=== PATIENT | female | born 1965 | race Caucasian/White ===

== ENCOUNTER → 2018-09-08 14:58 | Outpatient (CLI) | payer OTHER, SELFPAY ==
[2018-09-13 10:54] LABS: HPV Reflexed? NOT INDICATED
== END ==
PROVIDERS: Visit Provider Obstetrics & Gynecology
DX: Z12.4 Encounter for screening for malignant neoplasm of cervix (principal)
CPT/HCPCS: 88175; G0145

== ENCOUNTER → 2021-07-31 14:26 | Outpatient (CLI) | payer OTHER, SELFPAY ==
[2021-08-05 10:32] LABS: HPV Reflexed? NOT INDICATED
== END ==
PROVIDERS: Visit Provider Obstetrics & Gynecology
DX: Z12.4 Encounter for screening for malignant neoplasm of cervix (principal)
CPT/HCPCS: 88175; G0145

== ENCOUNTER → 2021-10-15 10:10 | Outpatient (CLI) | payer OTHER, SELFPAY ==
--- NOTE | 2021-10-15 10:05 | EMB_PTH ---
PATIENT: BAUDILIO JUSTIN LOC: [facility] U#:[id number] AGE/SX: 60/F ROOM: RE10/15/[address]: Dr. Keegan Fuchs MD : 1965 BED: DIS: SPEC #: [id number] RECD: 10/15/21 10:18 STATUS: CHARANJIT JOSHUA #: [id number] RAND: 10/15/21 10:[address]: Keegan Fuchs DEPT: SURGICAL PATHOLOGY RECD BY: Leora Moore Tissues: Endometrium, NOS Procedures: Surgery Specimen Level IV HEADER OPERATION: EMBX PRE-OP DIAGNOSIS: N95.0 TISSUE SUBMITTED: EMBX MICROSCOPIC DIAGNOSIS Endometrial biopsy: Proliferative endometrium. SJ 10/17/21 MICROSCOPIC DESCRIPTION Slides are reviewed. GROSS DESCRIPTION Received is one container labeled with the patient name and designated EMBX. The specimen consists of multiple irregular fragments of light palma soft tissue that in aggregate measure 2.0 x 1.5 x 0.2 cm. The specimen is totally submitted in one cassette. / CRYS:bri 10/15/21 TC: 4 CPT:05513
== END ==
PROVIDERS: Visit Provider Obstetrics & Gynecology
DX: N95.0 Postmenopausal bleeding (principal)
CPT/HCPCS: 88305

== ENCOUNTER 2021-12-08 05:27 | Day surgery (SDC) | payer OTHER, SELFPAY ==
--- NOTE | 2021-12-03 09:22 | EKG12_ITS ---
Test Reason : PRE OP Blood Pressure : / mmHG Vent. Rate : 053 BPM Atrial Rate : 053 BPM P-R Int : 226 ms QRS Dur : 080 ms QT Int : 412 ms P-R-T Axes : 077 063 062 degrees QTc Int : 386 ms Sinus bradycardia with 1st degree A-V block Otherwise normal ECG Confirmed by MONALISA BARRIOS, TED ([id number]), editor department YUMIKO PORTER ([id number]) on 12/04/2021 7:51:26 AM Referred By: Keegan Fuchs Confirmed By:TED SHELDON MD
[2021-12-03 10:58] LABS: Hematocrit 40.2 % (37-47); Hemoglobin 13.5 g/dL (12.0-15.0); Mean Corp Hgb Conc 33.6 g/dL (32-36); Mean Corpuscular Hgb 30.7 pg (27.0-32.0); Mean Corpuscular Volume 91.4 fL (81-99); Mean Platelet Vol. 9.4 fl (6.2-12.0); Platelet Count 273 K/mm3 (150-450); RBC Distribution Width CV 12.1 % (11.6-14.6); RBC Distribution Width SD 40.5 fl (35.1-43.9); White Blood Count 5.4 K/mm3 (4.4-11.0)
[2021-12-03 11:23] LABS: Creatinine, Serum 0.65 mg/dL (0.55-1.02); EST Glomerular Filtration Rate 101 mL/min (>60); Est Glom Filt Rate - Afr Amer 122 mL/min (>60); Magnesium 2.1 mg/dL (1.6-2.6)
[2021-12-03 11:27] LABS: Prothrombin Time (Protime)PT. 12.6 SECONDS (11.7-14.9)
[2021-12-03 11:28] LABS: Partial Thromboplast Time 26.8 Seconds (24.1-36.2)
--- NOTE | 2021-12-05 | HYST_PTH ---
PATIENT: BAUDILIO JUSTIN [place] [facility] [place][id number] AGE/SX: 56/F ROOM: RE12/08/[address]: Dr. Keegan Fuchs MD : 1965 BED: DIS: 12/08/2021 SPEC #: [id number] RECD: 12/08/21 11:55 STATUS: CHARANJIT LEWIS #: [id number] RAND: 12/05/21 00:[address]: Keegan Fuchs DEPT: SURGICAL PATHOLOGY RECD BY: Onel Watts Tissues: Uterus, NOS Procedures: Surgery Specimen Level V HEADER OPERATION: ERAS, lap robotic hysterectomy, BSO PRE-OP DIAGNOSIS: Postmenopausal bleeding TISSUE SUBMITTED: Uterus and bilateral fallopian tubes and ovaries MICROSCOPIC DIAGNOSIS Uterus, bilateral fallopian tubes and ovaries, hysterectomy and bilateral salpingo-oophorectomy: Cervix ? mild chronic cystic cervicitis. Endometrium ? atrophic endometrium. Myometrium ? an intramural leiomyoma (0.3 cm in diameter). - Adenomyosis. Bilateral fallopian tubes - no pathologic diagnosis. Right ovary - no pathologic diagnosis. 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 Right paratubal cysts. SJ:rg 12/09/2021 COMMENT Nodule adjacent to the left fallopian tube is consistent with fibroma/thecoma. Case has been reviewed in consultation with Dr. Osuna who concurs with the above diagnosis. IDC:AM MICROSCOPIC DESCRIPTION Slides are reviewed. GROSS DESCRIPTION Received in fixative is one container labeled with the patient's name and designated uterus, bilateral fallopian tubes and ovaries. The specimen consists of a hysterectomy specimen consisting of uterus with cervix and attached bilateral fallopian tubes and ovaries. The uterus with cervix weighs 52 gm and measures 7.5 x 5 x 3.5 cm. The external os is oval in contour. The ectocervical mucosa is unremarkable. The endocervical canal measures 3 cm in length and the endocervical mucosa is palma, glistening and unremarkable. The triangular endometrial cavity measures 3.5 cm in length and up to 2 cm in width. The endometrium is palma, glistening without any mass lesion and measures <0.1 cm in thickness. Sections of the uterine wall reveal one small nodule measuring 0.3 cm in diameter. The uninvolved uterine wall measures up to 1.7 cm in thickness. The right fallopian tube measures 5.6 cm in length and up to 0.5 cm in diameter. The fimbrial end is identified. Sections reveal unremarkable cut surfaces. Two paratubal cysts are noted measuring 1 and 1.5 cm in greatest dimension. No tubo-ovarian adhesions are identified. Sections reveal unremarkable cut surfaces. The right ovary measures 2 x 1 x 0.5 cm. Sections reveal unremarkable cut surfaces. The left fallopian tube measures 6.5 cm in length and 0.6 cm in diameter. The fimbrial end is identified. A nodule is noted close to fimbrial end measuring 0.6 cm in greatest dimension. Sections of fallopian tube reveal unremarkable cut surfaces. The left ovary measures 2 x 1 x 0.7 cm. Sections reveal unremarkable cut surfaces. Service Line Bus Cleaner sections are submitted in ten cassettes as follows: 1??anterior cervix, 2 - posterior cervix, 3 & 4 - anterior uterine wall (3 also contains the nodule), 5 & 6 - posterior uterine wall, 7 - right fallopian tube and paratubal cysts, 8 - right ovary, 9??left fallopian tube and nodule, fallopian tube, entirely submitted, 10 - left ovary. / SJ:rg 12/08/2021 TC:5 CPT: 41064
[2021-12-08] VITALS (14 sets, daily range): BP systolic 92–117; BP diastolic 53–75; PULSE 49–77; RESP 16–18; TEMP 35.7–36.9; O2SAT 96–100; BMI 23.1
[2021-12-08] MEDS: Acetaminophen 500 MG Tablet 1000 MG PO (06:36)
[2021-12-08] MEDS: Gabapentin 600 MG Tablet PO (06:36)
[2021-12-08] MEDS: Lactated Ringers 1,000 ML 40 ML IV ×2 (06:45→15:25)
--- NOTE | 2021-12-08 07:27 | HP.PCM_ITS ---
History and Physical Date of Admission: 12/08/21 Surgical History and Physical Rossy Palomo, a 56 year old female 3 1 1 0 4, presents for RAVH/BSO on December 08, 2021 at . 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 G 5 P 4 post-menopausal non-smoker with last bleeding starting on 09-28-21 lasting 7 days with scant bleeding. Bled for about 3 days bright red. No menses prior for about 20 months. Pelvic u/s and EMBx OK. Family hx of uterine cancer. Bleeding persisting on occasion. MEDICATIONS HISTORY: Current medications prescribed by our practice are: 1. acyclovir 400 mg tablet, 1 po 5x/d x 7 d for recurrent cold sore ALLERGIES: Codeine, Rash and hives, Shellfish, Rash and hives, Latex condoms, Yeast inf, Wheat, Barley, Oats, Gluten, Diarrhea, constipation, anemia, Codeine, Hives and/or rash, Latex, Candidiasis of vagina (yeast), Shellfish Derived and Hives and/or rash Infections - Chicken pox Illnesses - celiac sprue, MVP and Cold sores Accidents - no injuries of consequence Hospitalizations - Childbirth and see surgery by [facility]; Review of Systems: GENERAL - Denies fever, or chills SKIN - Denies skin changes EYES - Denies visual changes EARS - Denies difficulty hearing NOSE - Denies nasal congestion or bleeding MOUTH - Denies sore throat or difficulty swallowing NECK - Denies pain or swelling RESPIRATORY - Denies shortness of breath or wheezing CARDIOVASCULAR - Denies palpitations or chest pain GASTROINTESTINAL - Denies nausea, vomiting, diarrhea, constipation GENITOURINARY - Denies dysuria, frequency of urination, incontinence of urine MUSCULOSKELETAL - Denies joint or muscle pain NEUROLOGICAL - Denies localized numbness or weakness PSYCHIATRIC - Denies depression or anxiety ENDOCRINE - Denies heat or cold intolerance, weight loss or gain HEMATO-IMMUNOLOGIC - Denies excesive bleeding with cuts SOCIAL HISTORY: Alcohol Use - RARELY Smoking - denies smoking Diet - no grains/glutens Lifestyle - moderate stress lifestyle, active lifestyle and Exercise - very active and running Seat Belt Use - always 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 Maternal Grandfather: Heart Disease. Paternal Grandmother: Uterine cancer. Maternal Aunt: celiac sprue. MENSTRUAL HISTORY: LMP Known?- YesAmount/Duration - 7 days scant, Regularity - missed periods, Frequency - variable days, LMP - 09/28/21, Age Onset Menarche - 15 PAST PREGNANCIES: Total Pregnancies - 5; Full Term Pregnancies - 3; Premature - 1; Abortions, Induced - 0; Abortions, Spontaneous - 1; Ectopics - 0; Multiple Births - 0; Living Children - 4 SURGICAL HISTORY: 1. 1982 WISDOM TEETH 2. 1972 T AND A 3. 1988 DX LAPAROSCOPY 4. Back Surgery, removal of bone fragments, 2017 5. 04/2016 (R) Shoulder Surgery PHYSICAL EXAM BP- 128/78 Sitting, Right arm, regular cuff Weight- 158.93384 lbs Height- 68 inch BMI:24.07 CONSTITUTIONAL - NAD, well nourished, and well developed SKIN - No rash, lesions, or ulcers HEENT - Normocephalic, PERRLA, EOMI NECK - No nodes, no nuchal rigidity and thyroid normal size and texture LYMPH NODES - Palpation of lymph nodes in neck and groins within normal limits LUNGS - CTA x2 without wheezes, crackles or rales CARDIAC - Regular rate and rhythm without rubs, murmurs, or gallops BREAST - No dominant masses, no tenderness, no axillary adenopathy, no nipple discharge, no skin changes ABDOMEN - Without hepatosplenomegaly, distention, masses, rebound, or guarding; normal bowel sounds; no hernias EXTREMITIES - No edema or calf tenderness NEUROLOGICAL - Cranial nerves II-XII grossly intact PSYCHIATRIC - A and O to time, place, person, mood and affect External Genitial Vagina - non-tender without lesions Urethra/Urethral Meatus - non-tender Bladder - non-tender Vagina - vaginal guzman are pink and moist without loss of rugae and no evidence of atropy Cervix - without cervical motion tenderness and has normal size and features without evident lesions Uterus - uterus 6-7 cm non tender Adnexa - clear without masses or tenderness ASSESSMENT/PLAN: 1. Postmenopausal Bleeding Persistent ELECTRIC MOTOR REPAIRMAN bleeding. Pelvic u/s and EMBx OK. Discussed treatment options at length including expectant management versus proceeding with surgery. Pt desires hysterectomy as family hx of from uterine cancer and multiple family members with breast cancer. Plan to proceed with RAVH/BSO. Discussed RBAs and all questions answered.
[2021-12-08] MEDS: Cefazolin 2 GM in 0.9% Normal Saline 100 ML IV (07:32)
--- NOTE | 2021-12-08 07:55 | SUR.PREOP ---
PATIENT REFUSED NASAL IODINE SWAB BECAUSE SHE HAS A SHELL FISH ALLERGY.
[2021-12-08] MEDS: Ropivacaine 0.5% 30 ML Vial (08:20)
[2021-12-08] MEDS: Lactated Ringers 1,000 ML 100 ML IV (08:46)
[2021-12-08 09:15] LABS: Bedside Glucose 89 mg/dL (70-110)
--- NOTE | 2021-12-08 09:32 | PCM.OPRPT ---
Report of Operation Date of Procedure: 12/08/21 Pre-Operative Diagnosis: Persistent Postmenopausal Bleeding Post-Operative Diagnosis: Persistent Postmenopausal Bleeding Surgery/Procedure Performed:: Robotic Assisted Vaginal Hysterectomy and Bilateral Salpingo-Oophorectomy Description of Surgical Findings:: 8 cm uterus with normal-appearing fallopian tubes and ovaries. Surgeon: Keegan Fuchs landscape management technician: Jourdan Haywood Type of Anesthesia: General (Endotracheal) Anesthesiologist: Timothy Rod Specimen's removed: Uterus and bilateral fallopian tubes and ovaries. Drains: Dong to straight drain (removed end of surgery) Estimated Blood Loss (mL): Minimal Fluids Replaced: Crystalloid Description of Procedure: Surgeon: Keegan Fuchs MD, FACOG Indication: This is a 56year old patient who has been having problems with postmenopausal bleeding which has persisted. Endometrial biopsy was benign. Conservative measures have not been helpful. The patient has been counseled regarding the risks, benefits and alternatives of this procedure including the possibility of bleeding, infection, and injury to surrounding structures such as bowel bladder and all questions were answered. Procedure: Pt taken to the operating room where, after induction of general anesthesia, the patient was prepped and draped in the usual sterile fashion and placed on a non-slip Huggy-u-vac device. Trendelenburg test was satisfactory. Bladder was drained of urine with a Dong catheter which was left in place. Anterior cervix grasped and cervix was dilated to about 3-4 mm. Uterus sounded to six cms. 0-Vicryl suture was placed at the 3:00 and 9:00 position of the cervix. A medium Advincula Locker Operator Uterine Manipulator was then placed in the uterus and attention was turned to the laparoscopic portion of the procedure. Ropivocaine 0.5% was injected approximately 2-3 cm superior to the umbilicus and an 8 mm robotic camera port was introduced directly with intraperitoneal placement confirmed with CO2 insufflation. 8 mm robotic side ports were introduced under direct visualization approximately 11 cm lateral and 2 cm inferior to the umbilical port. A 5 mm left upper quadrant port was introduced and airseal insufflation with CO2 was started. The above findings were noted. Robot was docked without difficulty and attention turned to the robotic portion of the procedure. Approximately 30 cc of Ropivicaine was used. Bilateral infundibulopelvic ligaments/mesosalpinx were ligated with 35 mar bipolar coagulation to the level of the round ligament. The posterior aspect of the cervix was identified and then opened for about 1 cm using 25 watt monopolar cautery. Bladder flap was opened and divided to the level of the round ligaments using monopolar cautery. Progressive bites were then ligated on each side of the cervix with 35 mar bipolar cautery to the uterine arteries. The anterior vaginal mucosa was entered and cervix circumscribed with monopolar cautery. Uterus and attached tubes and ovaries were removed through the vagina. Vaginal cuff was closed first with 0-Vicryl Safia stitches placed at each angle followed by closure of the mid-cuff with 0-Monocryl V-lock suture in two layers. Pelvis was copiously irrigated with saline and the right ureter was noted to peristalse. Elizabeth was placed across the vaginal cuff to help with some mild postoperative oozing. Robot was undocked and trocars were removed with as much gas as possible. Incisions were closed with 4-0 Monocryl subcuticular sutures and incisions covered with steri-strips. The patient tolerated the procedure well and was taken to the recovery room in satisfactory condition. Sponge, instruments and needle counts were all correct. There were no apparent complications of the surgery. Ancef 2 gms IV was given prior to the procedure. Grafts/Implants Used: None Complications None Admit VTE Documentation VTE Present on Admission: Yes VTE Mechan Device Prophylaxis: SCD's
--- NOTE | 2021-12-08 09:36 | PCM.DC ---
Discharge Instructions Diet Discharge Diet: No restrictions Activity Discharge Activity: May Shower and May Take a Tub Bath May resume sexual activity in: 6 weeks (nothing in the vagina.) Lifting Restrictions: 25 pounds for 6 weeks. Additional Activity Instructions:: Nothing in the vagina for 6 weeks please; no lifting more than 20-25 lbs for 6 weeks. Use Ibuprophen 800 mg orally every 8 hours as needed for pain. Can also add Tylenol 1000 mg every 8 hours if needed for pain. If Ibuprophen and Tylenol are not effective then use the Oxycodone but keep in mind it can cause serious constipation issues. Drink lots of water. Call if bleeding more than a pad per hour. Use the colace as constipation is a big issue after this type of surgery. Steps and walking are OK. Activity is encouraged but do not over do it !! Dressing / Incision Call your doctor if your incision/area has: Continuous Slow Oozing, Sudden Increased Bleeding, Increased Pain/ Swelling, Increased Redness and Foul Smelling Discharge Call your doctor if you observe: Fever of 101 or Higher, Inability to urinate, Inability to have a bowel movement, Using more than 1 pad per hour and - (Some vaginal bleeding may be noted for up to 4-8 weeks.) Cleanse incision/area with: - (Let the soapy water run over your incision, rinse and pat dry.) Additional Dressing/Incision Instructions:: The white strips (Steri Strips) on your incisions will fall off on their own. If they fall off and it bothers you it is okay to put Band-Aids across the incisions. Follow Up Care Please Follow Up With: Keegan Fuchs MD When: Call [phone] for a telehealth appointment in 2 weeks. Test Results: Test results from this visit will be discussed in further detail at your follow-up appointment, if applicable. Discharge Plan Admission Primary Reason for Your Visit: Robotic Vaginal Hysterectomy Attending Provider: Keegan Fuchs Discharge Orders/Prescriptions Prescriptions: New oxycodone 5 mg capsule 5 mg PO Q6H PRN (Reason: pain (scale score 7-10)) 7 Days Qty: 7 RF: 0 docusate sodium 100 mg tablet 100 mg PO BID PRN (Reason: constipation) Qty: 60 RF: 1 No Action Vitamin C 1,000 mg Tablet Extended Release 1,000 mg PO DAILY RF: 0 multivitamin Capsule 1 cap PO DAILY RF: 0 vitamin [id number] B1 Liquid 1 ml PO DAILY RF: 0 zinc 50 mg Capsule 50 mg PO DAILY RF: 0 cholecalciferol (vitamin D3) [Vitamin D3] 25 mcg (1,000 unit) Tablet 25 mcg PO DAILY RF: 0 Referrals / Follow Up: DOC BURNETT [Other] Disposition Disposition (needs filled in before D/C Order can be placed): Home, Self Care
[2021-12-08] MEDS: Ketorolac 30 MG/ML Syringe IV (15:20)
== END 2021-12-08 23:59 | disposition home or self-care (01) ==
LOC: SDC 05:28 → AC 05:29
PROVIDERS: Anesthesiology; Referring Provider Obstetrics & Gynecology; Visit Provider Obstetrics & Gynecology
PROC: 0UT94ZZ Resection of Uterus, Percutaneous Endoscopic Approach (ICD-10-PCS; CPT 58571; principal; 2021-12-08 07:10)
DX: D25.1 Intramural leiomyoma of uterus (principal); N95.0 Postmenopausal bleeding; D27.1 Benign neoplasm of left ovary; N80.0 Endometriosis of uterus
CPT/HCPCS: 58571; S2900; 00840; 36415; 82565; 82962; 83735; 85027; 85610; 85730; 86850; 86900; 86901; 88307; 93005; J7120; A4216; J2405